=== PATIENT | male | born 1975 | race Caucasian/White ===

== ENCOUNTER 2017-07-21 00:17 | Emergency (ER) | payer OTHER ==
[~2017-07-21] VITALS: Ht 182.9 cm; Wt 86.2 kg
[2017-07-21] MEDS ORDERED: NAPROXEN500 MG PO (00:30)
== END 2017-07-21 01:14 | disposition home or self-care (01) ==
LOC: ED 00:17 → EDBD 00:18 → ED 01:14
DX: S93.401A Sprain of unspecified ligament of right ankle, initial encounter (principal); X50.9XXA Other and unspecified overexertion or strenuous movements or postures, initial encounter; Z87.891 Personal history of nicotine dependence
CPT/HCPCS: 73610; 73630; 99283